=== PATIENT | male | born 1945 | race Caucasian/White ===

== ENCOUNTER 2017-12-01 11:37 | Emergency (ER) | payer OTHER ==
[~2017-12-01] VITALS: Ht 170.2 cm; Wt 74.8 kg
[2017-12-01 11:37] VITALS: BP_SYST 137
--- NOTE | 2017-12-01 11:42 | NUR ---
Pt was brought in by BLS, complaining of left knee pain, 09/04 since today. Pt states he has been having pain in the left knee for four days but today it got worse and cannot bear weight on today. Pt states he had swelling the past four days to the knee, but swelling has gone down. Pt believes "his meniscus tore." Pt states he might have twisted his knee when ambulating today. Pt denies N/V. No other injuries/complaints per patient or noted.
--- NOTE | 2017-12-01 12:05 | NUR ---
ER Dr. Nova at bedside examining patient.
[2017-12-01] MEDS ORDERED: ONDANSETRON HCL 4 MG/2 ML VIAL IVP ONE (12:30)
[2017-12-01] MEDS ORDERED: MORPHINE 4 MG/ML INJ. SYRINGE IVP ONE (12:30)
[2017-12-01] MEDS ORDERED: MORPHINE SULFATE 10 MG/ML VIAL ONE (12:52)
[2017-12-01 13:26] LABS: BASOPHILS # (AUTO) 0.1 K/uL (0.0-0.2); BASOPHILS % (AUTO) 0.6 % (0.0-2.0); EOSINOPHILS % (AUTO) 0.4 % (0.0-4.0); HEMATOCRIT 45.8 % (36-54); HEMOGLOBIN 15.1 g/dL (14.0-18.0); LYMPHOCYTES # (AUTO) 0.6 K/uL (1.0-5.5); LYMPHOCYTES % (AUTO) 6.5 % (20.5-51.5); MEAN CORPUSCULAR HEMOGLOBIN 30 pg (27-31); MEAN CORPUSCULAR HGB CONC 33 % (32-36); MEAN CORPUSCULAR VOLUME 91 fL (79.0-98.0); MONOCYTES # (AUTO) 0.6 K/uL (0.0-1.0); MONOCYTES % (AUTO) 7.5 % (1.7-9.3); NEUTROPHILS # (AUTO) 7.2 K/uL (1.8-7.7); PLATELET COUNT (AUTO) 201 K/uL (130-430); RED BLOOD CELL COUNT(AUTO) 5.05 MIL/uL (4.2-6.2); RED CELL DISTRIBUTION WIDTH 12.6 % (9.0-15.0); WHITE BLOOD COUNT (AUTO) 8.5 K/uL (4.8-10.8)
--- NOTE | 2017-12-01 13:36 | NUR ---
Radiology at patient bedside. Tolerated well.
[2017-12-01 13:38] LABS: CALCIUM 10.4 mg/dL (8.4-11.0); POTASSIUM 3.7 mmol/L (3.5-5.1)
[2017-12-01 13:42] LABS: ALBUMIN 4.1 g/dL (3.4-4.8); TOTAL BILIRUBIN 0.5 mg/dL (0.0-1.0)
[2017-12-01] MEDS ORDERED: HYDROmorphone 1 MG INJ. 1 MG/ML AMPUL IVP ONE (13:45)
--- NOTE | 2017-12-01 13:46 | NUR ---
Medication was given, pt tolerated well. No adverse reaction, will continue to monitor.
[2017-12-01 14:22] LABS: BILIRUBIN,URINE NEGATIVE (NEGATIVE); BLOOD, URINE NEGATIVE (NEGATIVE); CLARITY/URINE CLEAR (CLEAR); COLOR,URINE YELLOW (YELLOW); GLUCOSE,URINE NEGATIVE (NEGATIVE); KETONES,URINE 1+ (NEGATIVE); LEUKOCYTE ESTERASE ,URINE NEGATIVE (NEGATIVE); NITRITE, URINE NEGATIVE (NEGATIVE); PROTEIN URINE NEGATIVE (NEGATIVE); UROBILINOGEN,URINE 0.2 (0.2-1.0)
[2017-12-01] MEDS ORDERED: ONDANSETRON HCL 4 MG/5 ML UDC PO ONE (16:45)
[2017-12-01] MEDS ORDERED: HYDROcodone/ACETAMIN 5-325 MG TAB (NORCO/ VICODIN) PO ONE (16:45)
[2017-12-01 17:34] VITALS: BP_SYST 118
--- NOTE | 2017-12-01 17:36 | NUR ---
Patient given written and verbal discharge instructions and verbalizes understanding. ER MD discussed with patient the results and treatment provided. Patient in stable condition. ID arm band removed. IV catheter removed intact and dressing applied, no active bleeding. Rx of [facility], Tramadol and Zofran given. Patient educated on pain management and to follow up with PMD. Pain Scale 0/10 . Opportunity for questions provided and answered.
== END 2017-12-01 17:34 | disposition home or self-care (01) ==
LOC: SED 11:37
DX: G89.29 Other chronic pain (principal); M25.562 Pain in left knee; I10 Essential (primary) hypertension; Z88.5 Allergy status to narcotic agent
CPT/HCPCS: 29505; 36415; 73564; 80053; 81003; 85025; 96374; 96375; 99285; J1170; J2270; J2405; Q0162